=== PATIENT | female | born 1975 | race Caucasian/White ===

== ENCOUNTER → 2016-10-08 | Outpatient (CLI) | payer OTHER | END | disposition home or self-care (01) | LOC: CARD 11:14 → MERGE 11:14 | PROVIDERS: ATTEND Internal Medicine | DX: I99.8 Other disorder of circulatory system (principal); R94.39 Abnormal result of other cardiovascular function study | CPT/HCPCS: 93017; 93350 ==

== ENCOUNTER → 2016-10-23 | Outpatient (CLI) | payer OTHER | END | disposition home or self-care (01) | LOC: CFH 14:26 | PROVIDERS: ATTEND Obstetrics & Gynecology | DX: N64.89 Other specified disorders of breast (principal); N63 Unspecified lump in breast | CPT/HCPCS: 76641; G0206 ==